=== PATIENT | female | born 1995 | race Caucasian/White ===

== ENCOUNTER 2022-05-29 14:16 | Emergency (ER) | payer OTHER, SELFPAY ==
--- NOTE | ~2022-05-29 | XR_ITS ---
EXAMINATION: XR FOREARM, RIGHT CLINICAL INFORMATION: Right forearm puncture by. COMPARISON: None TECHNIQUE: AP and lateral views of the right forearm were obtained. FINDINGS: There is a right elbow and proximal forearm soft tissue gas from puncture wound. No radiopaque foreign body seen. No gross bony abnormality. XR/XR forearm RT 2V IMPRESSION: Right elbow and proximal forearm soft tissue gas from puncture wound. No radiopaque foreign body seen.
[2022-05-29 14:36] VITALS: BP 137/100; BP 138/67; PULSE 116; PULSE 94; RESP 20; TEMP 37.2; O2SAT 96; O2SAT 98; BMI 23.5
--- NOTE | 2022-05-29 14:49 | ED.GENADULT ---
HPI - General Adult General Chief complaint: Animal Bite Stated complaint: Dog bites per EMS Time Seen by Provider: 05/29/22 14:28 Source: patient Mode of arrival: ambulatory Limitations: no limitations History of Present Illness HPI narrative: 26 yold female presents to the ED for dog bite onher body. patient states neighbors dog went over the fence to attack patient. Patient was bitten in left chest, upper left bicep, left forearm, right forearm, and nail in left thumb. 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 Related Data Previous Rx's Medication Instructions Recorded amoxicillin 875 mg-potassium 1 tab PO BID 10 days #20 tabs 05/29/22 clavulanate 125 mg tablet ibuprofen 400 mg tablet 400 mg PO Q6H PRN fever or pain 7 05/29/22 days #28 tabs Allergies Allergy/AdvReac Type Severity Reaction Status Date / Time No Known Allergies Allergy Verified 02/11/20 08:38 Review of Systems Review of Systems: Mutliple dog bites Yes all other systems are reviewed and are negative [facility] Past Medical History Surgical History (Updated 02/11/20 @ 08:38 by MEHNAZ Ashton) No pertinent past surgical history Family History Family History (Updated 02/11/20 @ 08:39 by MEHNAZ Ashton) Father Myocardial infarction Hx of CABG Hypertension CVD (cardiovascular disease) Mother Medical history unknown Social History Social History Advance Directives: No Advance Directives Information Provided: No Physical Exam ED Vital Signs: Vital Signs - 24 hr 05/29/22 14:36 Temperature 99 F Pulse Rate 94 Respiratory Rate 20 Blood Pressure 138/67 Pulse Oximetry 96 Oxygen Delivery Method Room Air BMI result Body Mass Index 23.5 Const General: cooperative, healthy appearing, comfortable, no acute distress, well developed, alert and in distress (crying due to mutliple bites) Orientation/consciousness: oriented to person, oriented to place, oriented to time and patient oriented x3 HENMT Head: Yes normal to inspection, Yes No palpable skull fracture present, Yes normocephalic, Yes atraumatic and No abrasion Eyes General: appearance normal, both eyes and all related structures Neck Neck: Yes normal visual inspection, Yes full ROM, Yes no lymphadenopathy, Yes no meningeal signs, Yes trachea midline, Yes supple, No anterior neck swelling, No lymphadenopathy and No tender Chest Chest palpation & inspection: normal inspection of the chest and normal palpation of entire chest wall Chest/axillae images: 1. Abrasion from dog Resp Effort & Inspection: normal respiratory effort and able to speak in complete sentences Auscultation: clear to auscultation bilaterally Cardio Jugular venous distension: no JVD Heart sounds: S1 normal heart sound present and S2 normal heart sound present General: No CVA tenderness and Yes no CVA tenderness Back/Spine/Pelvis Back: no CVA tenderness, No CVA tenderness and No back tenderness Skin Other: mutlipe abrasion from dog bite. Neuro General: oriented to person, oriented to place, oriented to time, patient oriented x3, gait normal, tone normal, moves all extremities, Normal light touch and pain sensation, no meningeal signs, no focal motor deficits and CN's II-XI intact bilaterally Extrem Other: Shoulder/upper arm images: 1. Abrasions. controlled bleeding 2. small puncture wound/bite. motor, neuro, and vascular exam of upper extremity intact 3. small puncture wound/bite. Motor exam limited of forearm due to puncture bite. negative wrist drop. vascular exam intact. Hand/finger images: 1. Broken nail. Capillary refill intact 2. Broken nail. Capiilary refill intact Psych Appearance: grossly normal, well kempt and not disheveled Course Course Course Narrative: Patient will prefer to wait to confirm with police is patient up to date with rabies. Patient up-to-date to DTaP. X-ray right forearm ordered. Motrin Tylenol order in 1st dose antibiotics. Reevaluation(s) Reevaluation #1: Nurse Patel called [place] [employer] and they state they cannot release rabies vaccine status of national van owner operator's dog who attacked patient. Patient was made aware of this she states she would prefer to wait and confirm rabies vaccine status of dog with national van owner operator who is a neighbor before having rabies immunoglobulin and vaccine. She states if she cannot confirm rabies vaccine status of dog who attacked her she will return to ED immediately for injections for to prevent rabies. Wounds were clean and wrapped with sterile saline Betadine iodine and bacitracin. Patient discharged with antibiotics. Time: 16:47 Medications Administered Discontinued Medications Generic Name Dose Route Start Last Admin Trade Name Freq PRN Reason Stop Dose Admin Acetaminophen 975 mg 05/29/22 14:47 05/29/22 15:11 Acetaminophen 325 Mg Tablet PO 05/29/22 14:48 975 mg ONCE ONE Administration Amoxicillin/Clavulanate Potassium 875 mg 05/29/22 14:48 05/29/22 15:12 Amoxicillin/Potassium Clav 875 Mg Tablet PO 05/29/22 14:49 875 mg ONCE ONE Administration Bacitracin 2 appl 05/29/22 16:12 05/29/22 16:57 Bacitracin Oint 0.9 Gm Packet TOPICAL 05/29/22 16:13 2 appl ONCE ONE Administration Protocol Ibuprofen 800 mg 05/29/22 14:47 05/29/22 15:12 Ibuprofen 800 Mg Tablet PO 05/29/22 14:48 800 mg ONCE ONE Administration Medical Decision Making Medical Decision Making [facility] Narrative: 26-year-old female presents to ED for multiple dog bites caused by pimple was owned by her neighbor. Unknown rabies vaccine status. X-ray of forearm negative for any broken 2. Differential Diagnosis Differential Diagnoses: The differential diagnosis associated with the presentation includes (Puncture wound, laceration, abrasion, cellulitis,) Prescription Management I considered prescription management with: Pain Medication (Motrin) and Antibiotic (Augmentin) Discharge Plan Discharge Clinical Impression: Dog bite Patient Disposition: Home, Self-Care Instructions: Animal Bite (ED) Additional Instructions: Return to the ED immediately for any redness, red streaks, pus discharge, foul odor, fever, chills, inability to move extremities, fingers, numbness/tingling, swelling, or any other concerning symptoms. Also return to the ED immediately for rabies vaccine and immunoglobulin if he cannot confirm rabies vaccine status of dog. Prescriptions: New amoxicillin-pot clavulanate 875-125 mg tablet 1 tab PO BID 10 Days Qty: 20 0RF ibuprofen 400 mg tablet 400 mg PO Q6H PRN (Reason: fever or pain) 7 Days Qty: 28 0RF Stand Alone Forms: Work/School Release Interventions: ED Discharge Assessment Last Done: 05/29/22 18:18 Print Language: Nigerien
[2022-05-29] MEDS: Acetaminophen 325 MG TABLET 975 MG PO (15:11)
[2022-05-29] MEDS: Ibuprofen 800 MG TABLET PO (15:12)
[2022-05-29] MEDS: Amoxicillin/Potassium Clav 875 MG TABLET PO (15:12)
--- NOTE | 2022-05-29 16:02 | PC.NURSE ---
ANIMAL BITE REPORTING FORM SENT OVER TO [facility]
[2022-05-29] MEDS: Bacitracin Oint 0.9 GM PACKET 2 APPL TOPICAL (16:57)
== END 2022-05-29 17:50 | disposition home or self-care (01) ==
PROVIDERS: Emergency Provider Emergency Medicine
DX: S21.152A Open bite of left front wall of thorax without penetration into thoracic cavity, initial encounter (principal); S51.852A Open bite of left forearm, initial encounter; S61.052A Open bite of left thumb without damage to nail, initial encounter; M79.601 Pain in right arm; W54.0XXA Bitten by dog, initial encounter; Y93.9 Activity, unspecified; Y92.007 Garden or yard of unspecified non-institutional (private) residence as the place of occurrence of the external cause; Y99.9 Unspecified external cause status
CPT/HCPCS: 73090; 99283